=== PATIENT | female | born 1995 | race Two or more races ===

== ENCOUNTER 2017-01-09 14:02 | Emergency (ER) | payer BC ==
[2017-01-09 14:06] VITALS: BP 136/85; PULSE 78; RESP 20; TEMP 97.5
--- NOTE | 2017-01-09 14:33 | ED ---
General Adult HPI - General Chief complaint: Abdominal Pain Stated complaint: Female Time Seen by Provider: 01/09/17 14:20 Source: patient, RN notes reviewed Mode of arrival: ambulatory Limitations: no limitations - History of Present Illness Initial comments: 21-year-old female presents to the emergency department with a chief complaint of vaginal discharge. Patient states she's had a white vaginal discharge on off for the past few days. Patient states he has a fishy-like odor. Patient states she's having little bit of pelvic discomfort with it as well. Patient denies any fever or chills with this. Patient denies any nausea vomiting. Patient states she was concerned due to the continued pain so she thought that she should be evaluated. Patient states she has been sexual partner she is not concerned about STDs at this time.Patient denies any recent fever, chills, shortness of breath, chest pain, back pain, abdominal pain, nausea vomiting, numbness or tingling, dysuria or hematuria, constipation or diarrhea, headaches or visual changes, or any other current symptoms. - Related Data Previous Rx's Medication Instructions Recorded metroNIDAZOLE 0.75% VAGINAL 1 applic VAGINAL HS #7 tube 01/09/17 [Metrogel Vaginal] Allergies Allergy/AdvReac Type Severity Reaction Status Date / Time No Known Allergies Allergy Verified 01/09/17 14:06 Review of Systems ROS Statement: Those systems with pertinent positive or pertinent negative responses have been documented in the HPI. ROS Other: All systems not noted in ROS Statement are negative. Past Medical History Past Medical History: No Reported History History of Any Multi-Drug Resistant Organisms: None Reported Past Surgical History: No Surgical Hx Reported Past Psychological History: No Psychological Hx Reported Smoking Status: Current every day smoker Past Alcohol Use History: Occasional Past Drug Use History: None Reported General Exam Limitations: no limitations General appearance: alert, in no apparent distress Respiratory exam: Absent: respiratory distress Cardiovascular Exam: Present: regular rate GI/Abdominal exam: Present: soft, normal bowel sounds. Absent: distended, tenderness, guarding, rebound, rigid External exam: Present: normal external exam Speculum exam: Present: vaginal discharge (Right, clear fishy odor) By manual exam: Present: normal by manual exam Neurological exam: Present: alert, oriented X3, CN II-XII intact. Absent: motor sensory deficit Psychiatric exam: Present: normal affect, normal mood Skin exam: Present: warm, dry, intact, normal color. Absent: rash Course Vital Signs 01/09/17 14:05 Temperature 97.5 F L Pulse Rate 78 Respiratory 20 Rate Blood Pressure 136/85 O2 Sat by Pulse 100 Oximetry Medical Decision Making - Medical Decision Making 19-year-old female since vaginal discharge. At this time we did tap patient receives however, suspicion for bacterial vaginosis. We discussed outpatient treatment for this. We did discuss care return follow up and all the patient's questions. Patient stated she understood she is bleeding. The plan and does feel comfortable. At this time the patient will be discharged home. Disposition Clinical Impression: Bacterial vaginosis Disposition: HOME SELF-CARE Condition: Stable Instructions: Bacterial Vaginosis (ED) Additional Instructions: Please use medication as discussed. Please follow up with family doctor if symptoms have not improved over the next two days. Please return to the emergency room if your symptoms increase or worsen or for any other concerns. please follow up in STD results. Prescriptions: metroNIDAZOLE 0.75% VAGINAL [Metrogel Vaginal] 1 applic VAGINAL HS #7 tube Referrals: None,Stated [Primary Care Provider] - 1-2 days Aravind Arteaga MD [STAFF PHYSICIAN] - 1-2 days Time of Disposition: 14:33
== END 2017-01-09 14:56 | disposition home or self-care (01) ==
LOC: EC 14:02
DX: N76.0 Acute vaginitis (principal); F17.200 Nicotine dependence, unspecified, uncomplicated
CPT/HCPCS: 87070; 87205; 87491; 87591; 87808; 99284